=== PATIENT | female | born 1930 | race Two or more races ===

== ENCOUNTER 2019-06-21 00:14 | Emergency (ER) | payer MEDICARE, OTHER ==
[~2019-06-21] VITALS: Ht 154.9 cm; Wt 45.4 kg
--- NOTE | 2019-06-21 00:30 | NUR ---
ED Nurse Note: Pt brought in by daughter from home, pt c/o /10 R flank pain and swelling since trying to get up from the toilet. Denies injury, VSS. Pt has severe dementia so daughter is at bedside.
--- NOTE | 2019-06-21 00:36 | Emergency Room Report ---
History of Present Illness General Chief Complaint: Back Pain-No Injury Source: Family Member Present Illness HPI This is an 89-year-old female with a history of dementia. She presents with complaint of back pain. Brought in by her granddaughter. Patient was on the toilet and as she was getting up she started wincing in pain. Pain is localized to the back on the left side. Worse with movement. Worse with palpation. Family thought that there may be some swelling in that area. No other injury. Did not pass out. No trauma. Allergies: Coded Allergies: No Known Allergies (Unverified , 06/21/19) COVID-19 Screening Contact w/high risk pt: No Recent Travel to affected area: No Experienced COVID-19 symptoms?: No Patient History Past Medical History: see triage record, old chart reviewed, dementia Past Surgical History: none Pertinent Family History: none Social History: Denies: smoking Now: No Immunizations: other Reviewed Nursing Documentation: PMH: Agreed; PSxH: Agreed Nursing Documentation-PMH History Of Psychiatric Problem: Yes - alzheimer's Review of Systems Eye: Denies: eye pain, blurred vision ENT: Denies: ear pain, nose congestion, throat swelling Respiratory: Denies: cough, shortness of breath Cardiovascular: Denies: chest pain, palpitations Gastrointestinal: Denies: abdominal pain, diarrhea, nausea, vomiting Musculoskeletal: Denies: back pain, joint pain Skin: Denies: rash Neurological: Denies: headache, numbness Endocrine: Denies: increased thirst, increased urine Hematologic/Lymphatic: Denies: easy bruising All Other Systems: negative except mentioned in HPI Physical Exam Vital Signs Date Time Temp Pulse Resp B/P (MAP) Pulse Ox O2 Delivery O2 Flow Rate FiO2 06/21/19 00:19 99.0 62 20 157/73 (101) 98 Room Air Vitals unremarkable Sp02 EP Interpretation: reviewed, normal General Appearance: well appearing, no apparent distress, alert Head: normocephalic, atraumatic Eyes: bilateral eye PERRL, bilateral eye EOMI ENT: hearing grossly normal, normal pharynx Neck: full range of motion, supple, no meningismus Respiratory: chest non-tender, lungs clear, normal breath sounds Cardiovascular #1: regular rate, rhythm, no murmur Gastrointestinal: normal bowel sounds, non tender, no mass, no organomegaly, no bruit, non-distended Musculoskeletal: back normal - Tenderness to the posterior rib on the left side. No crepitance., normal range of motion, gait/station normal Psychiatric: mood/affect normal Medical Decision Making Diagnostic Impression: Primary Impression: Strain of thoracic back region ER Course Patient with a strain of her back muscle in the muscle. No fracture dislocation. No evidence of any infection. Will discharge home. She has no respiratory issue. No cough or fever. I see no evidence of any pneumonia consolidation mentioned on the CT scan. CT/MRI/US Diagnostic Results CT/MRI/US Diagnostic Results : Imaging Test Ordered: CT chest Impression Negative per radiologist. No focal consolidation. Possible minimal right upper lobe infiltrates. This could be chronic changes or scarring. Last Vital Signs Date Time Temp Pulse Resp B/P (MAP) Pulse Ox O2 Delivery O2 Flow Rate FiO2 06/21/19 00:19 99.0 62 20 157/73 (101) 98 Room Air Status: improved Disposition: HOME, SELF-CARE Condition: Stable Scripts Acetaminophen With Codeine (T#3) (TYLENOL #3 TAB*) Y Tab 1 TAB ORAL Q8H PRN for For Pain, #20 TAB Prov: Toro Gonzalez MD 06/21/19 Patient Instructions: Back Pain, Adult Additional Instructions: Follow-up with in 7 days. Return if symptoms worsen. Toro Gonzalez MD June 21, 2019 00:36
[2019-06-21 00:45] VITALS: BP 157/73
[2019-06-21] MEDS ORDERED: Tylenol #3 tab (300mg/30mg) ORAL ONE (00:45)
[2019-06-21 00:52] LABS: APPEARANCE,URINE CLEAR; BILIRUBIN, URINE NEGATIVE (NEGATIVE); COLOR,URINE PALE YELLOW; GLUCOSE, URINE (UA) NEGATIVE (NEGATIVE); KETONES,URINE NEGATIVE (NEGATIVE); LEUKOCYTE ESTERASE ,URINE 2+ (NEGATIVE); NITRITE,URINE NEGATIVE (NEGATIVE); PH,URINE 7 (4.5-8.0); PROTEIN,URINE NEGATIVE (NEGATIVE); UROBILINOGEN,URINE 1 MG/DL (0.0-1.0)
--- NOTE | 2019-06-21 01:00 | NUR ---
ED Nurse Note: pt went to ct
--- NOTE | 2019-06-21 01:18 | NUR ---
ED Nurse Note: pt back from ct
--- NOTE | 2019-06-21 01:24 | Diagnostic Imaging Report ---
EXAM: CT Chest Without Intravenous Contrast CLINICAL HISTORY: PAIN TECHNIQUE: Axial computed tomography images of the chest without intravenous contrast. CTDI is 2 mGy and DLP is 91 mGy-cm. One or more of the following dose reduction techniques were used: automated exposure control, adjustment of the mA and/or kV according to patient size, use of iterative reconstruction technique. COMPARISON: No relevant prior studies available. FINDINGS: Lungs: No focal consolidation. Possible minimal right upper lobe infiltrates, versus chronic changes or scarring. Emphysematous lung changes. Pleural space: Unremarkable. No pneumothorax. No significant effusion. Heart: Unremarkable. Bones/joints: Unremarkable. No acute fracture. Soft tissues: Unremarkable. Vasculature: Unremarkable. Lymph nodes: Unremarkable. Stomach and bowel: Thickened gastric cardia which may be underdistention, gastritis, versus lesion. IMPRESSION: No focal consolidation. Possible minimal right upper lobe infiltrates, versus chronic changes or scarring.
[2019-06-21] MEDS ORDERED: ACETAMINOPHEN-1 EAC1 ORAL (01:39)
[2019-06-21 01:42] VITALS: BP_SYST 148; BP_DIAS 82; BP_DIAS 84
--- NOTE | 2019-06-21 01:42 | NUR ---
ER DISCHARGE NOTE: Patient is cleared to be discharged per ERMD, pt is aox4, on room air, with stable vital signs. pt was given dc and prescription instructions, pt was able to verbalize understanding, pt id band removed without complications. pt is able to ambulate with steady gait. pt took all belongings.
== END 2019-06-21 01:42 | disposition home or self-care (01) ==
LOC: EMR 00:53
DX: S29.012A Strain of muscle and tendon of back wall of thorax, initial encounter (principal); G30.9 Alzheimer's disease, unspecified; F02.80 Dementia in other diseases classified elsewhere, unspecified severity, without behavioral disturbance, psychotic disturbance, mood disturbance, and anxiety; X58.XXXA Exposure to other specified factors, initial encounter; Y92.9 Unspecified place or not applicable
CPT/HCPCS: 71250; 81003; 99284